=== PATIENT | female | born 1980 ===

== ENCOUNTER 2018-07-26 20:52 | Inpatient (IN) | payer MEDICAID, OTHER ==
[2018-07-26 21:18] VITALS: BMI 25.9
--- NOTE | 2018-07-26 22:21 | ED PDOC ---
Arrival/HPI - General Chief Complaint: Back Pain Time Seen by Provider: 07/26/18 21:49 Historian: Patient - History of Present Illness Narrative History of Present Illness (Text): 07/26/18 22:19 38 yo F presents c/o R flank pain and R mid back pain, states that she was recently seen at [facility] ER 3 days ago for urinary retention, states that she had labs and CT scan done which showed a large fibroid and she had a santos inserted, she still has the santos, is draining well of urine and was told that she has a UTI, was Rx macrobid, and instructed to f/u with emergency medical technician basic. States that she did not have the back pain when she left [facility]. Otherwise she denies any fevers, chills, headache, dizziness, CP, SOB, N/V/D. Past Medical History - Infectious Disease Hx of Infectious Diseases: None - Reproductive Currently : No - Psychiatric Hx Substance Use: No - Surgical History Other/Comment: Hemmroids Removal Family/Social History Family/Social History: No Known Family HX Smoking Status: Never Smoked Hx Alcohol Use: No Hx Substance Use: No Allergies/Home Meds Allergies/Adverse Reactions: Allergies No Known Allergies Allergy (Verified 07/26/18 21:17) Home Medications: Home Meds Medication Instructions Recorded Confirmed No Known Home Med 07/26/18 07/26/18 Review of Systems - Review of Systems Constitutional: absent: Fatigue, Fevers Respiratory: absent: SOB, Cough Cardiovascular: absent: Chest Pain, Palpitations Gastrointestinal: Abdominal Pain. absent: Nausea, Vomiting Genitourinary Female: Urine Output Changes (+urinary retention, has a santos ) Musculoskeletal: Back Pain. absent: Arthralgias, Neck Pain Skin: absent: Rash, Pruritis, Skin Lesions Neurological: absent: Headache, Dizziness Physical Exam Vital Signs Temp Pulse Resp BP Pulse Ox 07/26/18 21:16 97.5 F L 65 18 116/76 98 Temperature: Afebrile Blood Pressure: Normal Pulse: Regular Respiratory Rate: Normal Appearance: Positive for: Well-Appearing, Non-Toxic, Comfortable Pain Distress: Moderate Mental Status: Positive for: Alert and Oriented X 3 - Systems Exam Head: Present: Atraumatic, Normocephalic Pupils: Present: PERRL Extroacular Muscles: Present: EOMI Conjunctiva: Present: Normal Mouth: Present: Moist Mucous Membranes Neck: Present: Normal Range of Motion Respiratory/Chest: Present: Clear to Auscultation, Good Air Exchange. No: Respiratory Distress, Accessory Muscle Use Cardiovascular: Present: Regular Rate and Rhythm, Normal S1, S2. No: Murmurs Abdomen: Present: Tenderness (+mild suprapubic tenderness, +palpable small mass to the LLQ). No: Distention, Peritoneal Signs, Rebound, Guarding Back: Present: Normal Inspection. No: CVA Tenderness, Midline Tenderness, Paraspinal Tenderness Upper Extremity: Present: Normal Inspection. No: Cyanosis, Edema Lower Extremity: Present: Normal Inspection. No: Edema Neurological: Present: GCS=15, CN II-XII Intact, Speech Normal Skin: Present: Warm, Dry, Normal Color. No: Rashes Psychiatric: Present: Alert, Oriented x 3, Normal Insight, Normal Concentration Medical Decision Making ED Course and Treatment: 07/26/18 22:17 Plan : - Labs - UA - Urine cx - Toradol IV - CT A/P w/o contrast 07/27/18 00:21 Patient requested to have the santos removed to see if she can urinate. Labs reviewed. CT Abdomen and Pelvis without IV contrast CLINICAL HISTORY: FLANK PAIN TECHNIQUE: Axial computed tomography images of the abdomen and pelvis without intravenous contrast. 266.79 mGy-cm CONTRAST: Without COMPARISON: None provided. FINDINGS: LUNG BASES: The lung bases demonstrate dependent atelectasis. No pleural effusions are seen. LIVER: Unremarkable. GALLBLADDER AND BILE DUCTS: The gallbladder appears within normal limits. No radioopaque gallstones are seen. No biliary ductal dilatation is evident. PANCREAS: Unremarkable. SPLEEN: Unremarkable. ADRENAL GLANDS: Unremarkable. KIDNEYS, URETERS, AND BLADDER: Both kidneys are normal in size and position. There is mild left hydronephrosis noted; likely subsequent to compression of the urinary bladder. No urinary calculi are seen. The urinary bladder is compressed and displaced anteriorly by the large central pelvic mass. STOMACH AND BOWEL: Unremarkable appearance of the stomach and bowel. No evidence of bowel obstruction. No evidence suggesting enteritis or colitis. APPENDIX: No evidence of acute appendicitis on CT examination. PERITONEUM: No free fluid. No free air. LYMPH NODES: No lymphadenopathy is evident. REPRODUCTIVE: The uterus is displaced anteriorly and to the left by a large central pelvic mass measuring approximately 12.0 x 11.9 x 10.8 cm in AP and transverse dimensions respectively. The mass demonstrates a heterogeneous texture possibly consistent with a pedunculated uterine leiomyoma or an ovarian mass; such as cystadenoma or cystadenocarcinoma. VASCULATURE: No evidence of abdominal aortic aneurysm. BONES: No aggressive appearing osseous lesion. No acute osseous pathology evident. IMPRESSION: 1. Large central pelvic heterogeneous mass as described above. This may represent a pedunculated uterine leiomyoma or possibly an ovarian mass with considerations discussed above. 2. Anterior displacement and compression of the urinary bladder is present. 3. Mild left hydronephrosis noted. Likely subsequent to bladder compression. 4. Anterior and left displacement of the uterus is also noted. 07/27/18 00:30 On re-evaluation, patient reports that her pain is controlled, after the santos was removed, so far she has not had the urge, nor does she feel that her bladder is full. On exam, patient remains AAOx3, in no acute distress. Diagnostic results d/w the patient in great detail. Diagnosis of pelvic mass possibly a fibroid vs a mass d/w the patient. Based on history, exam and diagnostic results, plan will be for inpatient admission, which the patient agrees with. Case d/w pediatrician/medical doctor and Dr. Walker, who agree with plan to admit under the hospitalist service. - RAD Interpretation Radiology Orders: 07/26/18 22:13 ABD & PELVIS W/O PO OR IV CONT [CT] Stat - Medication Orders Current Medication Orders: Ketorolac Tromethamine (Toradol) 30 mg IVP STAT STA Stop: 07/26/18 22:14 - PA / FOOD TRUCK CATERER / Resident Statement MD/DO has reviewed & agrees with the documentation as recorded. Disposition/Present on Arrival - Present on Arrival Any Indicators Present on Arrival: No History of DVT/PE: No History of Uncontrolled Diabetes: No Urinary Catheter: No History of Decub. Ulcer: No History Surgical Site Infection Following: None - Disposition Have Diagnosis and Disposition been Completed?: Yes Diagnosis: Pelvic mass in female, Urinary retention Disposition: HOSPITALIZED Disposition Time: 00:45 Patient Plan: Admission Patient Problems: Current Active Problems Problem Status Onset Pelvic mass in female Acute Urinary retention Acute Condition: STABLE
[2018-07-26 22:51] LABS: BASO # 0.04 K/mm3 (0.0-2.0); BASO % 0.8 % (0.0-3.0); EOS # 0.1 (0.0-0.7); EOS % 2.1 % (1.5-5.0); HEMOGLOBIN 11.6 g/dL (12.0-16.0); LYMPH % 42.1 % (22.0-35.0); MEAN CELL VOLUME 91.7 fl (80.0-105.0); MEAN CORPUSCULAR HEMOGLOBIN 30.1 pg (25.0-35.0); MEAN CORPUSCULAR HGB CONC 32.9 g/dl (31.0-37.0); MEAN PLATELET VOLUME 9.9 fl (7.0-11.0); MONO # 0.6 (0.1-0.6); MONO % 12.5 % (1.0-6.0); RBC 3.85 10^6/uL (3.5-6.1); RED CELL DISTRIBUTION WIDTH 14.2 % (11.5-14.5); WHITE BLOOD COUNT 4.8 10^3/uL (4.5-11.0)
[2018-07-26 23:00] LABS: INR 1.14; PARTIAL THROMBOPLASTIN TIME 35.4 Seconds (26.9-38.3); PROTHROMBIN TIME 12.6 SECONDS (9.4-12.5)
[2018-07-26 23:03] LABS: ALB/GLOB RATIO 1.2 (1.1-1.8); ALBUMIN 3.4 g/dL (3.0-4.8); ALT/SGPT 57 U/L (7-56); AST/SGOT 25 U/L (14-36); BLOOD UREA NITROGEN 5 mg/dL (7-21); CALCIUM 8.7 mg/dL (8.4-10.5); GFR NON-AFRICAN AMERICAN > 60; LIPASE 47 U/L (23-300)
[2018-07-27 00:06] LABS: PH,URINE 6.5 (4.7-8.0); URINE BILIRUBIN NEGATIVE (NEGATIVE); URINE BLOOD NEGATIVE (NEGATIVE); URINE GLUCOSE (UA) NEGATIVE (NEGATIVE); URINE LEUKOCYTE ESTERASE SMALL Leu/uL (NEGATIVE); URINE PROTEIN NEGATIVE mg/dL (<30 mg/dL); URINE UROBILINOGEN 0.2 E.U./dL (<1 E.U./dL)
[2018-07-27 00:07] LABS: URINE APPEARANCE CLEAR (CLEAR); URINE COLOR YELLOW (YELLOW)
[2018-07-27 00:42] LABS: URINE RBC 0 - 2 /hpf (0-2)
[2018-07-27 00:43] LABS: URINE BACTERIA FEW /hpf
--- NOTE | 2018-07-27 01:11 | CP.PCM.HP ---
<Edward Grubbs - Last Filed: 07/27/18 06:21> History of Present Illness - History of Present Illness History of Present Illness: Resident History & Physical for Hospitalist Service Patient is a 38 year old female with no significant past medical history presenting with chief complaint of urinary retention in addition to diffuse abdominal and back discomfort which began 4 days ago. Patient states she went to [facility] for workup, was found to have fibroid on CT scan, had santos inserted, and was given Macrobid for UTI. Upon arrival to [facility] ED, the santos was removed and patient was able to void afterwards. Patient states she typically has regular but heavy menstrual periods. FDLMP is July 13. Her last followup with [facility] was several years ago. Denies recent travel, sick contacts, fevers, chills, chest pain, shortness of breath, diarrhea. PMH: none PSH: hemorrhoidectomy SHx: denies alcohol, tobacco, illicit drug use FHx: denies Allergies: NKDA PMD: none Present on Admission - Present on Admission Any Indicators Present on Admission: No Review of Systems - Review of Systems All systems: reviewed and no additional remarkable complaints except (as stated in HPI) Past Patient History - Infectious Disease Hx of Infectious Diseases: None - Past Social History Smoking Status: Never Smoked - PSYCHIATRIC Hx Substance Use: No - SURGICAL HISTORY Other/Comment: hemorrhoidectomy Meds Allergies/Adverse Reactions: Allergies Allergy/AdvReac Type Severity Reaction Status Date / Time No Known Allergies Allergy Verified 07/26/18 21:17 Physical Exam - Constitutional Appears: Non-toxic, No Acute Distress - Head Exam Head Exam: ATRAUMATIC, NORMOCEPHALIC - Eye Exam Eye Exam: EOMI, Normal appearance, PERRL - ENT Exam ENT Exam: Mucous Membranes Moist, Normal Exam - Neck Exam Neck exam: Positive for: Normal Inspection. Negative for: Lymphadenopathy - Respiratory Exam Respiratory Exam: Clear to Auscultation Bilateral, NORMAL BREATHING PATTERN. absent: Accessory Muscle Use, Rales, Rhonchi, Wheezes, Respiratory Distress - Cardiovascular Exam Cardiovascular Exam: RRR, +S1, +S2. absent: Tachycardia, Systolic Murmur - GI/Abdominal Exam GI & Abdominal Exam: Distended, Mass (LLQ), Soft, Tenderness. absent: Firm, Guarding, Rebound, Rigid - Extremities Exam Extremities exam: Positive for: normal capillary refill, pedal pulses present. Negative for: calf tenderness, pedal edema - Back Exam Back exam: absent: CVA tenderness (L), CVA tenderness (R) - Neurological Exam Neurological exam: Alert, CN II-XII Intact, Oriented x3 - Psychiatric Exam Psychiatric exam: Normal Affect, Normal Mood - Skin Skin Exam: Dry, Intact, Normal Color, Warm Results - Vital Signs Recent Vital Signs: Last Vital Signs Temp 97.5 F L 07/26/18 21:16 Pulse 50 L 07/27/18 00:19 Resp 18 07/27/18 00:19 BP 105/63 07/27/18 00:19 Pulse Ox 100 07/27/18 00:19 - Labs Result Diagrams: 07/26/18 22:46 07/26/18 22:46 Labs: Laboratory Results - last 24 hr 07/26/18 07/26/18 07/26/18 22:46 22:46 22:46 WBC 4.8 RBC 3.85 Hgb 11.6 L Hct 35.3 L MCV 91.7 MCH 30.1 MCHC 32.9 RDW 14.2 Plt Count 232 MPV 9.9 Neut % (Auto) 42.5 L Lymph % (Auto) 42.1 H Berg[place] % (Auto) 12.5 H Eos % (Auto) 2.1 Baso % (Auto) 0.8 Lymph # (Auto) 2.0 Bergen # (Auto) 0.6 Eos # (Auto) 0.1 Baso # (Auto) 0.04 Absolute Neuts (auto) 2.04 PT 12.6 H INR 1.14 APTT 35.4 Sodium 138 Potassium 3.8 Chloride 103 Carbon Dioxide 29 Anion Gap 9 L BUN 5 L Creatinine 0.6 L Est GFR ( Amer) > 60 Est GFR (Non-Af Amer) > 60 Random Glucose 96 Calcium 8.7 Magnesium 1.9 Total Bilirubin 0.1 L AST 25 ALT 57 H Alkaline Phosphatase 61 Total Protein 6.2 Albumin 3.4 Globulin 2.8 Albumin/Globulin Ratio 1.2 Lipase 47 Urine Color Urine Appearance Urine pH Ur Specific [place] Urine Protein Urine Glucose (UA) Urine Ketones Urine Blood Urine Nitrate Urine Bilirubin Urine Urobilinogen Ur Leukocyte Esterase Urine RBC Urine WBC Ur Epithelial Cells Urine Bacteria 07/26/18 23:40 WBC RBC Hgb Hct MCV MCH MCHC RDW Plt Count MPV Neut % (Auto) Lymph % (Auto) Bergen % (Auto) Eos % (Auto) Baso % (Auto) Lymph # (Auto) Berg[place] # (Auto) Eos # (Auto) Baso # (Auto) Absolute Neuts (auto) PT INR APTT Sodium Potassium Chloride Carbon Dioxide Anion Gap BUN Creatinine Est GFR ( Amer) Est GFR (Non-Af Amer) Random Glucose Calcium Magnesium Total Bilirubin AST ALT Alkaline Phosphatase Total Protein Albumin Globulin Albumin/Globulin Ratio Lipase Urine Color Yellow Urine Appearance Clear Urine pH 6.5 Ur Specific [place] 1.015 Urine Protein Negative Urine Glucose (UA) Negative Urine Ketones Negative Urine Blood Negative Urine Nitrate Negative Urine Bilirubin Negative Urine Urobilinogen 0.2 Ur Leukocyte Esterase Small H Urine RBC 0 - 2 Urine WBC 1 - 3 Ur Epithelial Cells 1 - 3 Urine Bacteria Few Assessment & Plan - Assessment and Plan (Free Text) Assessment: Patient is a 38 year old female with no significant past medical history presenting with chief complaint of urinary retention, and was found to have large central pelvic mass compressing urinary bladder with mild left hydronephrosis. Plan: Pelvic mass - CT abd/pelvis shows large mass, anterior displacement and compression of urinary bladder, mild left hydronephrosis - afebrile, no leukocytosis - OB-[facility]PEDO WORKER consulted. Appreciate recs. - Tylenol PRN for pain - I&Os, bladder scan Urinary retention - secondary to pelvic mass causing compression of urinary bladder - Urology consulted. Appreciate recs. PPX - Pepcid, SCDs Case discussed with Dr. Denise Grubbs PGY-1 <Chantell Walker - Last Filed: 07/27/18 08:02> Results - Vital Signs Recent Vital Signs: Last Vital Signs Temp 98 F 07/27/18 02:35 Pulse 58 L 07/27/18 02:35 Resp 18 07/27/18 02:39 BP 92/52 L 07/27/18 06:08 Pulse Ox 98 07/27/18 02:35 - Labs Result Diagrams: 07/27/18 06:00 07/27/18 06:00 Labs: Laboratory Results - last 24 hr 07/26/18 07/26/18 07/26/18 22:46 22:46 22:46 WBC 4.8 RBC 3.85 Hgb 11.6 L Hct 35.3 L MCV 91.7 MCH 30.1 MCHC 32.9 RDW 14.2 Plt Count 232 MPV 9.9 Neut % (Auto) 42.5 L Lymph % (Auto) 42.1 H Berg[place] % (Auto) 12.5 H Eos % (Auto) 2.1 Baso % (Auto) 0.8 Lymph # (Auto) 2.0 Bergen # (Auto) 0.6 Eos # (Auto) 0.1 Baso # (Auto) 0.04 Absolute Neuts (auto) 2.04 PT 12.6 H INR 1.14 APTT 35.4 Sodium 138 Potassium 3.8 Chloride 103 Carbon Dioxide 29 Anion Gap 9 L BUN 5 L Creatinine 0.6 L Est GFR ( Amer) > 60 Est GFR (Non-Af Amer) > 60 Random Glucose 96 Calcium 8.7 Magnesium 1.9 Total Bilirubin 0.1 L AST 25 ALT 57 H Alkaline Phosphatase 61 Total Protein 6.2 Albumin 3.4 Globulin 2.8 Albumin/Globulin Ratio 1.2 Lipase 47 Urine Color Urine Appearance Urine pH Ur Specific [place] Urine Protein Urine Glucose (UA) Urine Ketones Urine Blood Urine Nitrate Urine Bilirubin Urine Urobilinogen Ur Leukocyte Esterase Urine RBC Urine WBC Ur Epithelial Cells Urine Bacteria 07/26/18 07/27/18 07/27/18 23:40 06:00 06:00 WBC 4.3 L RBC 3.60 Hgb 10.8 L Hct 32.8 L MCV 91.1 MCH 30.0 MCHC 32.9 RDW 14.1 Plt Count 231 MPV 9.7 Neut % (Auto) 41.3 L Lymph % (Auto) 46.0 H Berg[place] % (Auto) 8.7 H Eos % (Auto) 3.1 Baso % (Auto) 0.9 Lymph # (Auto) 2.0 Berg[place] # (Auto) 0.4 Eos # (Auto) 0.1 Baso # (Auto) 0.04 Absolute Neuts (auto) 1.76 PT INR APTT Sodium 140 Potassium 3.6 Chloride 106 Carbon Dioxide 28 Anion Gap 10 BUN 5 L Creatinine 0.5 L Est GFR ( Amer) > 60 Est GFR (Non-Af Amer) > 60 Random Glucose 93 Calcium 8.5 Magnesium Total Bilirubin AST ALT Alkaline Phosphatase Total Protein Albumin Globulin Albumin/Globulin Ratio Lipase Urine Color Yellow Urine Appearance Clear Urine pH 6.5 Ur Specific [place] 1.015 Urine Protein Negative Urine Glucose (UA) Negative Urine Ketones Negative Urine Blood Negative Urine Nitrate Negative Urine Bilirubin Negative Urine Urobilinogen 0.2 Ur Leukocyte Esterase Small H Urine RBC 0 - 2 Urine WBC 1 - 3 Ur Epithelial Cells 1 - 3 Urine Bacteria Few Attending/Attestation - Attestation I have personally seen and examined this patient.: Yes I have fully participated in the care of the patient.: Yes I have reviewed all pertinent clinical information: Yes Notes (Text): 07/27/18 08:00 Pt seen with the resident by the bedside. Case discussed in detail. Agree with documentation,assessment and plan of treatment.
[2018-07-27] MEDS ORDERED: Sodium Chloride 0.9% 1,000 ML IV STA (06:12)
[2018-07-27] MEDS ORDERED: Sodium Chloride 0.9% 1,000 ML IV SCH (06:15)
[2018-07-27 06:44] LABS: BASO # 0.04 K/mm3 (0.0-2.0); BASO % 0.9 % (0.0-3.0); EOS # 0.1 (0.0-0.7); EOS % 3.1 % (1.5-5.0); HEMOGLOBIN 10.8 g/dL (12.0-16.0); MEAN CELL VOLUME 91.1 fl (80.0-105.0); MEAN CORPUSCULAR HGB CONC 32.9 g/dl (31.0-37.0); MEAN PLATELET VOLUME 9.7 fl (7.0-11.0); MONO # 0.4 (0.1-0.6); MONO % 8.7 % (1.0-6.0); RBC 3.6 10^6/uL (3.5-6.1); RED CELL DISTRIBUTION WIDTH 14.1 % (11.5-14.5); WHITE BLOOD COUNT 4.3 10^3/uL (4.5-11.0)
[2018-07-27 06:47] LABS: BLOOD UREA NITROGEN 5 mg/dL (7-21); CALCIUM 8.5 mg/dL (8.4-10.5); GFR NON-AFRICAN AMERICAN > 60
--- NOTE | 2018-07-27 09:43 | RAD ---
Date of service: 07/27/2018 HISTORY: urinary retention COMPARISON: No prior. FINDINGS: LUNGS: No active pulmonary disease. PLEURA: No significant pleural effusion identified, no pneumothorax apparent. CARDIOVASCULAR: No aortic atherosclerotic calcification present. Normal cardiac size. No pulmonary vascular congestion. OSSEOUS STRUCTURES: No significant abnormalities. VISUALIZED UPPER ABDOMEN: Normal. OTHER FINDINGS: None. IMPRESSION: No active disease.
--- NOTE | 2018-07-27 13:34 | CT ---
Date of service: 07/26/2018 PROCEDURE: CT Abdomen and Pelvis without intravenous contrast HISTORY: flank pain COMPARISON: None. TECHNIQUE: Unenhanced. Neither IV nor oral contrast administered Radiation dose: Total exam DLP = 266.79 mGy-cm. This CT exam was performed using one or more of the following dose reduction techniques: Automated exposure control, adjustment of the mA and/or kV according to patient size, and/or use of iterative reconstruction technique. FINDINGS: LOWER THORAX: Mild, approximately symmetrical dependent atelectasis limited to the lung bases as visualized. LIVER: Unremarkable. No gross lesion or ductal dilatation. GALLBLADDER AND BILE DUCTS: Unremarkable. PANCREAS: Unremarkable. No gross lesion or ductal dilatation. SPLEEN: Unremarkable. ADRENALS: Unremarkable. No mass. KIDNEYS AND URETERS: Right kidney: Unremarkable. No hydronephrosis. No solid mass. Left kidney in ureter: Dilatation of left ureter and fullness left collecting system likely results from the enlarged anteverted uterus impressing upon the distal ureter. No visible calculi in the kidneys or ureters noted. VASCULATURE: Unremarkable. No aortic aneurysm. No atherosclerotic calcification or mural plaque present. BOWEL: Constipation without fecal impaction or obstruction. APPENDIX: A normal appendix is visualized in it's entirety. PERITONEUM: Unremarkable. No free fluid. No free air. LYMPH NODES: Unremarkable. No enlarged lymph nodes. BLADDER: Displaced anteriorly by the enlarged anteverted uterus. REPRODUCTIVE: Markedly enlarged uterus 11.1 x 10.7 x 12.8 cm. BONES: No acute fracture. OTHER FINDINGS: None. IMPRESSION: Marked enlargement of the uterus. Marked heterogeneity with respect to the attenuation of the uterus. Secondary left hydroureter and hydronephrosis, in [place] resulting from pressure upon the distal left ureter. Additional benign and/or incidental findings described above. Follow-up recommendation: Pelvic ultrasound. Concordant findings (preliminary report) provided by [facility].
--- NOTE | 2018-07-27 18:07 | PN ---
DATE: 07/27/2018 CHIEF COMPLAINT Abdominal pain and low back pain. HISTORY OF PRESENT ILLNESS This is a patient who was in [facility]. She was discharged with urinary retention and a Sherman catheter. She was having continued pain and annoyance from the Sherman catheter and presented to [place]. She was found to have a huge pelvic mass of unknown etiology which was apparently known at [facility] and she was recommended to see Gynecology. In [place], the Sherman catheter was removed and the patient has been voiding without difficulty. She was noted to have questionable hydronephrosis and a consultation was then requested. I reviewed the CT scan; there appears to be mild fullness with a likely duplicated system on the left. The CT scan has not yet been officially read by Radiology however, the patient appears to have a huge pelvic mass; it is unclear whether this is a fibroid, whether this is from pelvic malignancy, possibly ovarian. A FOUNTAIN ATTENDANT consultation has been requested. LABORATORY DATA: On laboratory exam, the patient's creatinine and GFR are normal. GFR greater than 60. Urinalysis shows 0 to 2 RBC, 1 to 3 WBC, 1 to 3 epithelial cells. IMPRESSION AND PLAN: Possible hydronephrosis, appears to be due to the huge pelvic mass. Urologically the patient's kidney function is normal. She is now voiding and emptying her bladder which is being pushed laterally by this large mass. If urinary retention recurs, the patient will need an indwelling Sherman catheter until the mass is surgically removed. I would recommend a FOUNTAIN ATTENDANT consultation and the FOUNTAIN ATTENDANT surgeon should request cystoscopy with placement of ureteral catheters if possible at the time of planned pelvic surgery, as the mass is pushing the bladder out of the way, it may be difficult to locate the ureteral orifices, but I would be available to attempt to place catheters prior to the surgery. Urologically no acute intervention is needed at this time, but the patient needs a relatively urgent gynecologic consultation and we will need pathologic diagnosis of this mass. Nikhil Miles MD
[2018-07-28 06:36] LABS: BASO # 0.03 K/mm3 (0.0-2.0); BASO % 0.9 % (0.0-3.0); EOS # 0.1 (0.0-0.7); EOS % 3.4 % (1.5-5.0); HEMOGLOBIN 10.6 g/dL (12.0-16.0); LYMPH # 1.6 (1.2-3.4); LYMPH % 45.1 % (22.0-35.0); MEAN CELL VOLUME 90.7 fl (80.0-105.0); MEAN CORPUSCULAR HEMOGLOBIN 29.8 pg (25.0-35.0); MEAN CORPUSCULAR HGB CONC 32.8 g/dl (31.0-37.0); MONO # 0.3 (0.1-0.6); MONO % 8.3 % (1.0-6.0); RBC 3.56 10^6/uL (3.5-6.1); RED CELL DISTRIBUTION WIDTH 14.2 % (11.5-14.5); WHITE BLOOD COUNT 3.5 10^3/uL (4.5-11.0)
[2018-07-28 07:18] LABS: BLOOD UREA NITROGEN 7 mg/dL (7-21); CALCIUM 8.1 mg/dL (8.4-10.5); GFR NON-AFRICAN AMERICAN > 60
--- NOTE | 2018-07-28 10:16 | US ---
Date of service: 07/28/2018 HISTORY: Evaluate uterine mass COMPARISON: None available. TECHNIQUE: Transabdominal FINDINGS: UTERUS: Measures 9.4 x 5.3 x 6.1 cm. Normal in size and appearance. No fibroid or other mass lesion seen. ENDOMETRIUM: Measures 11 mm in diameter. Unremarkable. CERVIX: No cervical abnormality identified. RIGHT OVARY: Measures right adnexal mass measures 11.0 x 10.2 x 12.2 cm. It is heterogeneous and concerning for ovarian neoplasm. Further evaluation with magnetic resonance imaging with and without gadolinium is advised. Normal ovarian tissue could not be appreciated in the presence of this large adnexal mass. LEFT OVARY: Measures 4.4 x 4.3 x 3.0 cm. No solid mass. Normal flow. FREE FLUID: No significant free fluid noted. OTHER FINDINGS: None. IMPRESSION: 12.2 cm complex right adnexal mass. Suspicious for neoplasm. Recommend evaluation with pre and post gadolinium enhanced magnetic resonance imaging.
--- NOTE | 2018-07-28 12:44 | CP.PCM.PN ---
Subjective - Date & Time of Evaluation Date of Evaluation: 07/28/18 Time of Evaluation: 12:44 - Subjective Subjective: PGY1 Medicine Progress Note for Dr. Carey Patient was seen and evaluated at bedside. No acute events overnight. No new complaints. Patient otherwise denies headache, fever, chest pain, shortness of breath, nausea, vomiting, constipation, diarrhea, dysuria, hematuria. Of note, Patient states that she made an appointment with Dr. Devries (SUPERVISOR [employer]) tomorrow at 2PM. Objective - Vital Signs/Intake and Output Vital Signs (last 24 hours): Temp Pulse Resp BP Pulse Ox 98.2 F 53 L 18 90/53 L 96 07/28/18 08:21 07/28/18 08:21 07/28/18 08:21 07/28/18 08:21 07/28/18 08:21 - Medications Medications: Current Medications Acetaminophen (Tylenol 325mg Tab) 650 mg PO Q6H PRN PRN Reason: Fever >100.4 F Last Admin: 07/28/18 11:06 Dose: 650 mg Amoxicillin/Clavulanate Potassium (Augmentin 500 Mg-125 Mg Tab) 1 tab PO Q8 MIK; Protocol Famotidine (Pepcid) 20 mg IVP DAILY MIK Last Admin: 07/28/18 09:32 Dose: 20 mg Sodium Chloride (Sodium Chloride 0.9%) 1,000 mls @ 100 mls/hr IV .Q10H MIK Last Admin: 07/27/18 09:00 Dose: 100 mls/hr - Labs Labs: 07/28/18 06:00 07/28/18 06:00 PT 12.6 SECONDS (9.4-12.5) H 07/26/18 22:46 INR 1.14 07/26/18 22:46 APTT 35.4 Seconds (26.9-38.3) 07/26/18 22:46 - Additional Findings Additional findings: - Constitutional Appears: Non-toxic, No Acute Distress - Head Exam Head Exam: ATRAUMATIC, NORMOCEPHALIC - Eye Exam Eye Exam: EOMI, Normal appearance, PERRL - ENT Exam ENT Exam: Mucous Membranes Moist, Normal Exam - Neck Exam Neck exam: Positive for: Normal Inspection. Negative for: Lymphadenopathy - Respiratory Exam Respiratory Exam: Clear to Auscultation Bilateral, NORMAL BREATHING PATTERN. absent: Accessory Muscle Use, Rales, Rhonchi, Wheezes, Respiratory Distress - Cardiovascular Exam Cardiovascular Exam: RRR, +S1, +S2. absent: Tachycardia, Systolic Murmur - GI/Abdominal Exam GI & Abdominal Exam: Soft, Tenderness. absent: Firm, Guarding, Rebound, Rigid - Extremities Exam Extremities exam: Positive for: normal capillary refill, pedal pulses present. Negative for: calf tenderness, pedal edema - Back Exam Back exam: absent: CVA tenderness (L), CVA tenderness (R) - Neurological Exam Neurological exam: Alert, CN II-XII Intact, Oriented x3 - Psychiatric Exam Psychiatric exam: Normal Affect, Normal Mood - Skin Skin Exam: Dry, Intact, Normal Color, Warm Assessment and Plan - Assessment and Plan (Free Text) Assessment: Patient is a 38 year old female with no significant past medical history presenting with chief complaint of urinary retention in addition to diffuse abdominal and back discomfort. Patient was found to have pelvic mass on CT abd/pelvis compressing urinary bladder with mild left hydronephrosis. Pelvic mass, anterior displacement and compression of urinary bladder, and mild left hydronephrosis - CT abd/pelvis shows large mass, anterior displacement and compression of urinary bladder, mild left hydronephrosis - MRI with contrast of pelvis pending - TVUS: 12.2cm mass supsicious for neoplasm (see report) - OB-DEPARTMENT CLINICIAN consulted. Appreciate recs. Patient states she made an appointment with Dr. Devries ([employer]) for tomorrow at 2PM - Urology (Dr. Miles) consulted; rec appreciated ( recommends [employer]PER[employer] consult, MRI, possible cystoscopy) - Tylenol PRN for pain - I&Os, bladder scan - Regular diet UTI - Urinalysis +LE - Patient afebrile - No leukocytosis - Patient was recently treated with macrobid - Asymptomatic at this time - Urine cultures +gram negative rods with >100,000 colonies - Pending sensitivities - Start: Augmentin 500mg PO Q8 Urinary retention, resolved - Secondary to pelvic mass causing compression of urinary bladder - Urology consulted. Appreciate recs. Recommends [employer] consult, MRI, possible cystoscopy) - Monitor I&Os PPX - GI: Pepcid - DVT: SCDs Case discussed with Dr. Cherry Teague PGY-1
[2018-07-28] MEDS ORDERED: Amoxicillin-Clav 500-125 mg Tab PO SCH (14:00)
[2018-07-28 17:33] VITALS: BP 106/64; PULSE 55; RESP 20; TEMP 98.4; O2SAT 98
--- NOTE | 2018-07-28 21:09 | PN ---
DATE: 07/28/2018 SUBJECTIVE: The patient had a pelvic ultrasound which reports a 12 cm complex right adnexal mass suspicious for neoplasm and an MRI was requested. The patient had a CT scan a few days ago which reported that this was a uterine mass. Regardless, the patient appears to be voiding without the Sherman catheter. As per the medical note, the patient does not need a cystoscopy, however, she does have a left hydronephrosis. Because of the large mass compressing her ureter, placement of a stent would likely be unsuccessful as this is likely a high-grade obstruction. If there is deterioration in the patient's renal function, I would suggest diversion from above temporarily until the mass can be removed. However, her renal function remains normal and this does not appear necessary at this time. I did not see a COMPTOMETRIST consultation on the patient's chart although from the medical note, it does appear that Gynecology has been consulted. My recommendation is she should be booked for surgery sooner rather than later given the size of this mass and the suspicion for neoplasm. I would be available to discuss with the COMPTOMETRIST medical record consultant and possibly place ureteral catheter to aide them during the dissection for removal of this mass. Nikhil Miles MD
--- NOTE | 2018-07-29 08:46 | CP.PCM.DIS ---
Provider - Provider Date of Admission: 07/27/18 00:53 Attending physician: Dani Farah MD Primary care physician: NO PRIMARY CARE PROVIDER Consults: 07/27/18 01:14 Physician Consult Routine Comment: Consulting Provider: Colby Troy Consulting Physician: Colby Troy Reason for Consult: uterine mass causing hydronephrosis 07/27/18 01:16 Physician Consult Routine Comment: Consulting Provider: Nikhil Miles Consulting Physician: Nikhil Miles Reason for Consult: uterine mass causing hydronephrosis Time Spent in preparation of Discharge (in minutes): 45 Diagnosis - Discharge Diagnosis (1) Pelvic mass in female Status: Acute Priority: Medium (2) Urinary retention Status: Acute Priority: Medium (3) UTI (urinary tract infection) Status: Acute Priority: Medium Hospital Course - Lab Results Lab Results: Micro Results 07/26/18 23:40 Urine Random Urine Culture - Preliminary Gram Negative Kiran Most Recent Lab Values WBC 3.5 10^3/uL (4.5-11.0) L 07/28/18 06:00 RBC 3.56 10^6/uL (3.5-6.1) 07/28/18 06:00 Hgb 10.6 g/dL (12.0-16.0) L 07/28/18 06:00 Hct 32.3 % (36.0-48.0) L 07/28/18 06:00 MCV 90.7 fl (80.0-105.0) 07/28/18 06:00 MCH 29.8 pg (25.0-35.0) 07/28/18 06:00 MCHC 32.8 g/dl (31.0-37.0) 07/28/18 06:00 RDW 14.2 % (11.5-14.5) 07/28/18 06:00 Plt Count 210 10^3/uL (120.0-450.0) 07/28/18 06:00 MPV 10.0 fl (7.0-11.0) 07/28/18 06:00 Neut % (Auto) 42.3 % (50.0-68.0) L 07/28/18 06:00 Lymph % (Auto) 45.1 % (22.0-35.0) H 07/28/18 06:00 Story % (Auto) 8.3 % (1.0-6.0) H 07/28/18 06:00 Eos % (Auto) 3.4 % (1.5-5.0) 07/28/18 06:00 Baso % (Auto) 0.9 % (0.0-3.0) 07/28/18 06:00 Lymph # (Auto) 1.6 (1.2-3.4) 07/28/18 06:00 Story # (Auto) 0.3 (0.1-0.6) 07/28/18 06:00 Eos # (Auto) 0.1 (0.0-0.7) 07/28/18 06:00 Baso # (Auto) 0.03 K/mm3 (0.0-2.0) 07/28/18 06:00 Absolute Neuts (auto) 1.48 (1.4-6.5) 07/28/18 06:00 PT 12.6 SECONDS (9.4-12.5) H 07/26/18 22:46 INR 1.14 07/26/18 22:46 APTT 35.4 Seconds (26.9-38.3) 07/26/18 22:46 Sodium 138 mmol/L (132-148) 07/28/18 06:00 Potassium 3.8 mmol/L (3.6-5.0) 07/28/18 06:00 Chloride 109 mmol/L (98-107) H 07/28/18 06:00 Carbon Dioxide 23 mmol/L (21-33) 07/28/18 06:00 Anion Gap 9 (10-20) L 07/28/18 06:00 BUN 7 mg/dL (7-21) 07/28/18 06:00 Creatinine 0.5 mg/dl (0.7-1.2) L 07/28/18 06:00 Est GFR ( Amer) > 60 07/28/18 06:00 Est GFR (Non-Af Amer) > 60 07/28/18 06:00 Random Glucose 85 mg/dL (70-110) 07/28/18 06:00 Calcium 8.1 mg/dL (8.4-10.5) L 07/28/18 06:00 Magnesium 1.9 mg/dL (1.7-2.2) 07/26/18 22:46 Total Bilirubin 0.1 mg/dL (0.2-1.3) L 07/26/18 22:46 AST 25 U/L (14-36) 07/26/18 22:46 ALT 57 U/L (7-56) H 07/26/18 22:46 Alkaline Phosphatase 61 U/L (38-126) 07/26/18 22:46 Total Protein 6.2 g/dL (5.8-8.3) 07/26/18 22:46 Albumin 3.4 g/dL (3.0-4.8) 07/26/18 22:46 Globulin 2.8 gm/dL 07/26/18 22:46 Albumin/Globulin Ratio 1.2 (1.1-1.8) 07/26/18 22:46 Lipase 47 U/L (23-300) 07/26/18 22:46 Urine Color Yellow (YELLOW) 07/26/18 23:40 Urine Appearance Clear (CLEAR) 07/26/18 23:40 Urine pH 6.5 (4.7-8.0) 07/26/18 23:40 Ur Specific [place] 1.015 (1.005-1.035) 07/26/18 23:40 Urine Protein Negative mg/dL (<30 mg/dL) 07/26/18 23:40 Urine Glucose (UA) Negative mg/dL (NEGATIVE) 07/26/18 23:40 Urine Ketones Negative mg/dL (NEGATIVE) 07/26/18 23:40 Urine Blood Negative (NEGATIVE) 07/26/18 23:40 Urine Nitrate Negative (NEGATIVE) 07/26/18 23:40 Urine Bilirubin Negative (NEGATIVE) 07/26/18 23:40 Urine Urobilinogen 0.2 E.U./dL (<1 E.U./dL) 07/26/18 23:40 Ur Leukocyte Esterase Small Tha/uL (NEGATIVE) H 07/26/18 23:40 Urine RBC 0 - 2 /hpf (0-2) 07/26/18 23:40 Urine WBC 1 - 3 /hpf (0-6) 07/26/18 23:40 Ur Epithelial Cells 1 - 3 /hpf (0-5) 07/26/18 23:40 Urine Bacteria Few /hpf (NONE) 07/26/18 23:40 - Hospital Course Hospital Course: PGY1 Medicine Hospital Course and Discharge Summary for Dr. Carey Patient is a 38 year old female with no significant past medical history presenting with chief complaint of urinary retention in addition to diffuse abdominal and back discomfort which began 4 days prior to arrival. Patient [place] [facility] [place], was found to have fibroid on CT scan, had santos inserted, and was given Macrobid for UTI. Upon arrival to [facility] [place] [facility], the santos was removed and patient was able to void afterwards. Patient states she typically has regular but heavy menstrual periods. FDLMP is July 13. Patient's last followup with OB-HOP TRAINER was several years ago. CT abdomen/pelvis was obtained and revealed pelvic mass on CT abd/pelvis compressing urinary bladder with mild left hydronephrosis. Urology (Dr. Miles) consulted and recommended TRANSPORTATION OFFICER consult, MRI, possible cystoscopy. TVUS was obtained and revealed 12.2cm mass supsicious for neoplasm (see report). OB-HOP TRAINER consulted. Patient states she made an appointment with Dr. Devries (TRANSPORTATION OFFICER) for Jul 29 at 2PM. Patient was also found to have urinalysis consistent with UTI, and Urine cultures were obtained and revealed Gram negative rods. Patient was started on Augmentin 500mg PO BID. Patient was afebrile and asymptomatic. July 28, 2018: The patient requested to sign out AGAINST MEDICAL ADVICE. This action is against my medical advice to the patient and the decision was made with informed refusal. The patient was told that further workup is necessary and a full explanation of the rationale was given. The risks of leaving were explained to the patient and include but are not limited to increased morbidity and mortality, , and worsening of known or unknown conditions. Patient was AAOX3 and was able to make this informed decision and understood the clinical situation and my explanation of the risks of leaving. The patient voluntarily accepted these risks and signed an AMA form documenting our conversation. The patient was given the opportunity ask questions and reconsider. The patient was encouraged to return to emergency room at any time for further care. Patient was advised to follow-up with her primary care doctor as soon as possible, and to follow-up with TRANSPORTATION OFFICER as soon as possible. Discussed with Dr. Cherry Teague PGY1 Discharge Exam - Head Exam Additional comments: A&O x3. Discharge Plan - Follow Up Plan Condition: STABLE Disposition: AGAINST MEDICAL ADVICE Referrals: PCP,NO [Primary Care Provider] -
== END 2018-07-28 18:30 | disposition left against medical advice (07) ==
LOC: ED 20:52 → ERH 07-27 00:53 → 3RNO 07-27 02:20
PROVIDERS: ADMIT Internal Medicine; ATTEND Internal Medicine
DX: R19.00 Intra-abdominal and pelvic swelling, mass and lump, unspecified site (principal); N13.6 Pyonephrosis; N92.0 Excessive and frequent menstruation with regular cycle; N32.89 Other specified disorders of bladder; N85.4 Malposition of uterus